=== PATIENT | female | born 1980 | race Caucasian/White ===

== ENCOUNTER → 2018-02-27 12:45 | Outpatient (CLI) | payer OTHER, SELFPAY ==
--- NOTE | 2018-02-27 | DI.MG.S_ITS ---
BILATERAL DIGITAL DIAGNOSTIC MAMMOGRAM 3D/2D WITH AUGMENTATION: 02/27/2018 CLINICAL: Focal left breast pain. Bilateral augmentation. Baseline exam. No prior exams were available for comparison. The tissue of both breasts is heterogeneously dense. This may lower the sensitivity of mammography. No significant masses, calcifications, or other findings are seen in either breast. IMPRESSION: INCOMPLETE: NEEDS ADDITIONAL IMAGING EVALUATION There is no abnormality seen in the left breast to correspond with the pain in the outer aspect, however, ultrasound is recommended. This exam was interpreted at Station ID: [id number]. NOTE: For mammograms, a report in lay terms will be sent to the patient. Approximately 15% of breast malignancies will not be visualized mammographically. In the management of a palpable breast mass, a negative mammogram must not discourage biopsy of a clinically suspicious lesion. Electronically Signed By: Salomon barker/lisandra:02/27/2018 13:39:35 letter sent: Need Ultrasound ACR BI-RADS Category 0: Incomplete [id number]
--- NOTE | 2018-02-27 | DI.US.S_ITS ---
ULTRASOUND OF LEFT BREAST: 02/27/2018 CLINICAL: Focal left breast pain. Comparison is made to exam dated: 02/27/2018 [facility]. Real-time ultrasound of the left breast was performed on the area of interest. IMPRESSION: NEGATIVE There is no sonographic evidence of malignancy. There is no abnormality seen in the left breast to correspond with the pain in the outer aspect, however, clinical followup is recommended. A 1 year screening mammogram is recommended. This exam was interpreted at Station ID: [id number]. Electronically Signed By: Salomon Anton M.D. ddp/:02/27/2018 16:21:49 letter sent: Clinical Evaluation Ultrasound BI-RADS: 1 Negative
== END ==
PROVIDERS: Visit Provider Nurse Practitioner Obstetrics & Gynecology
DX: N64.4 Mastodynia (principal)
CPT/HCPCS: 76642; 77066; G0279

== ENCOUNTER → 2020-02-16 15:27 | Outpatient (CLI) | payer OTHER, SELFPAY ==
[2020-02-17 19:59] LABS: COVID19 Sendout Not Detected (Not Detect)
== END ==
PROVIDERS: Visit Provider Physician Assistant
DX: Z11.59 Encounter for screening for other viral diseases (principal)
CPT/HCPCS: 87635

== ENCOUNTER 2020-02-19 06:22 | Day surgery (SDC) | payer OTHER, SELFPAY ==
[2020-02-12 07:55] VITALS: BMI 21.4
[2020-02-19] VITALS (12 sets, daily range): BP systolic 97–123; BP diastolic 55–75; PULSE 60–84; RESP 14–20; TEMP 36.3–37.2; O2SAT 97–100; BMI 21.4
--- NOTE | 2020-02-19 | PATH_ITS ---
[facility] Accession Number: [id number] . 01 Material submitted: . UTERUS/FALLOPIAN TUBES - UTERUS AND BILATERAL FALLOPIAN TUBES . 02 Diagnosis: Uterus and Bilateral Fallopian Tubes, Hysterectomy and Bilateral Salpingectomy (118 grams): Myometrium with rare adenomyosis. Proliferative endometrium. Bilateral fallopian tubes with no diagnostic abnormality. No evidence of neoplasia or hyperplasia. [facility] 02/25/2020 1314 Local . 02 Electronically signed: . Teresita Jarvis MD, Pathologist NPI- [id number] . 01 Gross description: . Specimen A is received in formalin, labeled with patient identification and uterus and bilateral fallopian tubes. It consists of two 59.0-gram uterine fragments (7.0 x 6.5 x 3.4 cm in aggregate) with an attached fimbriated fallopian tube (8.4 cm in length and 0.5 cm in diameter), an attached nonfimbriated fallopian tube (4.3 cm in length and 0.5 cm in diameter) and a fimbriated fallopian tube segment (4.2 cm in length and 0.5 cm in diameter. The uterine serosa is pink-muñiz and dull. The pink-muñiz and dull endometrium is less than 0.1 cm in thickness. The yellow-muñiz and trabeculated myometrium is up to 2.3 cm in thickness. . The serosae of the fallopian tubes are purple to pink-muñiz and dull. Sectioning the fallopian tubes reveals pinpoint and patent lumina which are lined by yellow-muñiz and grossly unremarkable mucosa. The fimbriae are freely moveable. Fire Alarm Repairer sections are submitted in seven cassettes. . Summary of sections: A1-A2 - medical service representative endomyometrium, full thickness, one piece each. A3-A4 - medical service representative endomyometrium, two pieces each. A5 - medical service representative bisected fimbria and medical service representative cross-sections, attached fimbriated fallopian tube, five pieces. A6 - medical service representative bisected fimbria and medical service representative cross-section, detached fimbriated fallopian tube, three pieces. A7 - medical service representative cross-sections of the attached nonfimbriated fallopian tube, four pieces. (TN:[id number]) A8-A10 - additional medical service representative sections of serosal surface. A11-A12 - additional medical service representative sections of fallopian tubes. (SD:[id number]) /MRV 02/24/2020 1628 Local . 02 Pathologist provided ICD-10: N92.1, N80.0 . 02 CPT . 460077 Performed at: 01 [facility] [address] [id number] MD Salomon Brown MD Phone: [phone] Performed at: 02 [facility] [address] [place], [place] [id number] MD Teresita Jarvis MD Phone: [phone]
[2020-02-19] MEDS: LACTATED RINGERS 1,000 ML 42 ML IV (07:06)
--- NOTE | 2020-02-19 07:26 | PM.PREOP ---
Pre-operative Note COVID-19 COVID-19 status: Negative Result date/Date tested (Pos, Neg/Pending): 02/16/20 Interval Note History & Physical reviewed/Exam performed by Physician: Yes Changes to H&P: No
[2020-02-19] MEDS: CLINDAMYCIN 900 MG/50 ML PIGGYBACK 50 MG IV (07:40)
[2020-02-19] MEDS: BUPIVACAINE 0.5% W/ EPI (PF) 30 ML VIAL INJ (08:16)
--- NOTE | 2020-02-19 08:17 | SUR.OPER ---
Lithotomy on padded OR bed. [place] Pad Positioner under torso. Head on pillow, arms padded and tucked at sides. Legs secured in padded yellow fins stirrups.
[2020-02-19] MEDS: ROPIVACAINE 0.2% PF 2 MG/ML 10ML AMP 20 ML INJ (09:06)
--- NOTE | 2020-02-19 09:35 | P.OP_ITS ---
Operative Date/Time/Diagnoses Date of procedure: 02/19/20 Time of procedure: 09:35 Pre-op diagnosis: Menorrhagia, dysmenorrhea, adenomyosis Post-op diagnosis: same Procedure & Clinicians Procedure: Laparoscopic supracervical hysterectomy with bilateral salpingectomy Same procedure as scheduled: Yes Indications: Menorrhagia and dysmenorrhea with adenomyosis by ultrasound Surgeon: Mona Palomares Cigar Tobacco Rehandler: Sherrie Ventura Anesthesia Type: General Operative Notes Findings: Mild adhesions of the omentum to the anterior abdominal wall, significant adhesions of the bladder to the uterus, normal tubes and ovaries. Uterus suggestive of adenomyosis. Closure Type: primary Specimen(s): other (Uterus above the level of the bladder) Estimated Blood Loss (mL): 50 Blood products transfused: none Procedure in detail: Patient is brought to the operating room where she underwent general anesthesia and placed in low yellowfin stirrups. She was prepped and draped in the usual sterile fashion. A check list was reviewed with the staff in the room prior to beginning of the case. Patient had pulsatile stockings in place and functional. 900 mg of clindamycin were in prior to beginning of the case.. A Craig catheter was placed. A single-tooth tenaculum was placed on the anterior lip of the cervix and the cervix dilated to a #6 Hegar dilator. The uterine manipulator was placed through the cervix into the uterus with the balloon inflated with 3 mL of air. The area of the umbilical incision and the 5 mm right and left lower quadrant incisions were injected with Marcaine. An incision was made with scalpel. The verries needle was placed into the abdomen and confirmed in the appropriate place with withdrawal on a syringe and then free flow of fluid down through the needle. The abdomen was insufflated with CO2. The needle was removed and a 5 mm trocar placed without difficulty. There did not appear to be any damage is placement of the trocar. The right and left lower quadrant incisions were made with the scalpel and the trochars placed without damage to internal structures. The PK forceps were used to cauterize the the adhesions of the omentum to the anterior abdominal wall. Sequential bites were taken along the mesosalpinx followed by the round ligaments on both sides. Sequential bites were taken down the broad ligaments. The uterine arteries were cauterized. An incision was made above the level bladder pushing the bladder away from the cervix. The NICHOL loop was placed around the uterus and the uterus was amputated above the level of the bladder. Bleeding was controlled with the PK forceps. The PK forceps were used to cauterize in the endocervical canal. A supracervical incision was made and an 11 mm port placed. A 15 mm Endo Catch bag was placed in the abdomen. The uterus, tubes and ovaries were placed in the bag and brought up through the suprapubic port site. The Cliff O was placed. The uterus was hand morselized. The abdomen was reinsufflated and adequate hemostasis was noted. 30 cc of Ropivacaine was placed over the cervical stump. The trochars were removed and the CO2 allowed escape from the abdomen. The fascia layer of the suprapubic site was repaired with 0 Polysorb suture. Skin was closed with 4-0 Monocryl suture at the suprapubic site and the other 3 sites. The patient went to recovery room in good condition. Counts of instruments and sponges were correct. Complications: none Post-operative Condition: stable Disposition: observation Plan for aftercare: Routine post laparoscopic hysterectomy.
[2020-02-19] MEDS: OXYCODONE/ACETAMINOPHEN 5/325 TABLET 1 TAB PO (09:51)
--- NOTE | 2020-02-19 13:08 | CM.DANOTE ---
DCP: Case received, EMR reviewed. Checked briefly on patient, she was sleeping, and just came back from surgery. Placed name of this cyanide case hardener on white board in room prior to her returning to her room. Went ahead and reviewed chart and completed DCP assessment based on information currently available. Patient is a 39 year old female who admitted early this morning for a surgical procedure by BILLING TYPIST. PCP: Jessica Mukherjee. Payer: [facility]. Patient came to the hospital for a surgical procedure. She had a laparoscopic hysterectomy. Patient had had history of menorrhagia/dysmorrhia. Patient is independent, and employed with [employer]. She resides in [place] with her spouse, Imtiaz. P: DCP to continue to follow for any needs. Patient should be able to go home when she is medically stable. Genesis Mcgrath RN/Outbound Sales Professional
[2020-02-19] MEDS: KETOROLAC 30 MG/ML VIAL IV ×2 (13:23→20:50)
[2020-02-19] MEDS: LACTATED RINGERS 1,000 ML 100 ML IV (13:23)
[2020-02-19] MEDS: OXYCODONE/ACETAMINOPHEN 5/325 TABLET 2 TAB PO ×3 (13:25→22:06)
[2020-02-19] MEDS: DOCUSATE 250 MG CAPSULE PO (20:45)
[2020-02-20] VITALS: BP 101/55; PULSE 70; RESP 16; TEMP 36.9; O2SAT 98
[2020-02-20] MEDS: OXYCODONE/ACETAMINOPHEN 5/325 TABLET 2 TAB PO ×2 (02:03→07:23)
[2020-02-20 06:06] VITALS: BP 108/59; PULSE 59; RESP 16; TEMP 36.8; O2SAT 95
[2020-02-20 06:11] LABS: Add Manual Diff / Slide Review NO; Basophils Absolute Auto 100 /uL (0-100); Basophils Percent Auto 0.7 % (0-2); Eosinophils Absolute Auto 100 /uL (0-450); Eosinophils Percent Auto 0.4 % (2-4); Hematocrit 34.2 % (36-46); Hemoglobin 11.2 g/dL (12.0-16.0); Lymphocytes Absolute Auto 1700 /uL (1100-4500); Lymphocytes Percent Auto 13.1 % (25-40); Mean Corpuscular HGB Conc 32.8 % (30-36); Mean Corpuscular Hemoglobin 27.8 PG (26-34); Monocytes Absolute Auto 800 /uL (0-900); Monocytes Percent Auto 6.1 % (3-14); Neutrophils Absolute Auto 10600 /uL (1500-7000); Neutrophils Percent Auto 79.7 % (50-75); Platelet Count 187 X10^3/uL (150-400); Red Blood Cell Count 4.02 X10^6/uL (4.0-5.2); Red Cell Distribution Width 14.1 % (11.6-14.8); White Blood Cell Count 13.3 X10^3/uL (4.5-11.0)
[2020-02-20] MEDS: DOCUSATE 250 MG CAPSULE PO (07:24)
--- NOTE | 2020-02-20 07:25 | P.DS_ITS ---
History of Present Illness History of Present Illness Date Patient Seen: 02/20/20 Time Patient Seen: 07:25 Chief complaint: [facility] *OPB* Narrative: Patient underwent laparoscopic supracervical hysterectomy with bilateral salpingectomies for menorrhagia, dysmenorrhea, adenomyosis by ultrasound on 02/19/2020. Discharge Providers Provider Discharge Date: 02/20/20 Primary care physician: Jessica Mukherjee ND Discharge provider: Mona Palomares MD Summary Hospital Course Discharge Diagnosis: Status post laparoscopic supracervical hysterectomy with bilateral salpingectomy for menorrhagia, dysmenorrhea, adenomyosis by ultrasound Hospital Course: Patient underwent surgery on 02/19/2020. She did well postoperatively and was discharged home on 02/19/2020. Patient denies any significant pain. She denies any nausea and vomiting. She is urinating and ambulatory. Exam Vital Signs (past 8 hours): - 02/20/20 00:00 02/20/20 06:06 Temperature 98.5 F 98.3 F Pulse Rate 70 59 L Respiratory Rate 16 16 Blood Pressure 101/55 L 108/59 L Pulse Oximetry 98 95 Oxygen Delivery Method Room Air Oxygen Flow Rate 0 Narrative Exam Narrative: Patient's abdomen is soft, appropriately tender. Dressings are dry. Extremities without edema and nontender. Patient denies any vaginal bleeding. Objective Labs Result Diagrams: 02/20/20 05:55 Labs: Laboratory Results - last 24 hr 02/20/20 05:55 WBC 13.3 H RBC 4.02 Hgb 11.2 L Hct 34.2 L MCV 85.0 MCH 27.8 MCHC 32.8 RDW 14.1 Plt Count 187 Neut % (Auto) 79.7 H Lymph % (Auto) 13.1 L [place] % (Auto) 6.1 Eos % (Auto) 0.4 L Baso % (Auto) 0.7 Neut # (Auto) 98099 H Lymph # (Auto) 1700 [place] # (Auto) 800 Eos # (Auto) 100 Baso # (Auto) 100 Discharge Assessment & Plan Assessment and Plan Assessment: Status post laparoscopic supracervical hysterectomy for dysmenorrhea, menorrhagia, adenomyosis doing well Plan of Treatment: Patient was discharged home to be followed up in 2 weeks Discharge Plan Discharge Plan Patient Disposition: Home Discharge Med Rec/Prescriptions Prescriptions: Continued oxycodone-acetaminophen [Percocet] 5-325 mg tablet 2 tab PO Q4-6H PRN (Reason: pain) Qty: 30 RF: 0 Discontinued scopolamine base 1 mg over 3 days patch 3 day 1 patch transdermal Q3D PRN (Reason: nausea and vomiting) Qty: 1 RF: 0 Follow up/Referrals: Mona Palomares MD [Physician] - 2 Weeks Discharge Orders: Discharge (Order); Ordered 02/20/20 Ordered By: Mona Palomares Provider Discharge Instructions Diet: Regular Activity: No intercourse or heavy lifting for 1 week Skin/Wound/Dressing Care Report to your healthcare provider any signs of infection, such as:: chills, fever, increased pain and unusual redness Dressing: May remove Band-Aids later today. Leave Steri-Strips on, can get wet just pat dry. Remove in 7 days. Visit Report/Discharge Packet Instructions: DI for Hysterectomy, DI for Laparoscopy Discharge Data Primary Care Provider: Jessica Mukherjee Attending Provider: Mona Palomares
[2020-02-20 09:38] VITALS: BP 115/69; PULSE 69; RESP 16; TEMP 36.6; O2SAT 99
[2020-02-20] MEDS: ONDANSETRON 4 MG/2 ML INJ IV (10:53)
--- NOTE | 2020-02-20 11:15 | PC.NURSE ---
Patient A/Ox3, prepared to discharge today. Showered independently. C/O 6/10 pain this AM, given PRN pain medication. C/O nausea at 1030. PRN Zofran administered. Patient tolerated. Dsgs changed x4, sites are free of redness and warmth. Patient is afebrile. Patient is voiding, BS active x4. Patient given discharge instructions, including s/s of infection. Patient verbalized understanding. Patient discharged via wheelchair.
--- NOTE | 2020-02-20 11:24 | CM.DPC ---
DCP: continued: case received and discussed in Team Rounds. EMR reviewed. Dr. Palomares was here this morning and ok'd pt for d/c home. P: home today as soon as paperwork is completed.
== END 2020-02-20 11:00 | disposition home or self-care (01) ==
LOC: OR 06:24 → AC 06:27
PROVIDERS: PCP Acupuncturist; Referring Provider Acupuncturist; Visit Provider Specialist
PROC: 0UT94ZL Resection of Uterus, Supracervical, Percutaneous Endoscopic Approach (ICD-10-PCS; CPT 58542; principal; 2020-02-19 07:45)
DX: N80.0 Endometriosis of uterus (principal)
CPT/HCPCS: 58542; 36415; 85025; J1100; J1885; J2250; J2405; J2704; J2795; J3010

== ENCOUNTER → 2022-02-23 10:31 | Outpatient (CLI) | payer OTHER, SELFPAY ==
[2020-02-19 11:21] VITALS: BMI 21.4
[2022-02-23 12:06] LABS: COVID19 -Nasal RAPID Negative (Negative)
== END ==
PROVIDERS: PCP Acupuncturist; Referring Provider Podiatrist; Visit Provider Podiatrist
DX: Z20.822 Contact with and (suspected) exposure to COVID-19 (principal)
CPT/HCPCS: 87635; C9803

== ENCOUNTER 2022-02-24 06:16 | Day surgery (SDC) | payer OTHER, SELFPAY ==
[2020-02-19 11:21] VITALS: BMI 21.4
[2022-02-23 08:18] VITALS: BMI 24.7
[2022-02-24 07:10] VITALS: BP 119/87; PULSE 77; RESP 16; TEMP 36.8; O2SAT 98; BMI 24.3
--- NOTE | 2022-02-24 07:25 | SUR.OPER ---
Supine on padded OR bed, head on pillow, arms secured on padded arm boards at <90 degrees abduction, legs uncrossed, safety belt at thigh, tape over blanket over nonoperative lower leg.
[2022-02-24] MEDS: LACTATED RINGERS 1,000 ML 100 ML IV (07:40)
[2022-02-24] MEDS: SCOPOLAMINE 1 PATCH TOP (07:41)
--- NOTE | 2022-02-24 07:49 | PM.PREOP ---
Pre-operative Note COVID-19 COVID-19 status: Negative Result date/Date tested (Pos, Neg/Pending): 02/23/22 Interval Note History & Physical reviewed/Exam performed by Physician: Yes Changes to H&P: No
--- NOTE | 2022-02-24 07:50 | PM.OP.1 ---
Operative Date/Time/Diagnoses Date of procedure: 02/24/22 Time of procedure: 07:51 Pre-op diagnosis: Right great toe joint arthritis, bone spur. Post-op diagnosis: same Procedure & Clinicians Procedure: Right first metatarsophalangeal joint cheilectomy Same procedure as scheduled: Yes Indications: 41-year-old female with pain to the right great toe joint. Conservative measures failed to alleviate her pain and she wished to have surgical intervention at this time. Spoke the risks, potential complications, as well as expected outcomes of the procedure. Consent was signed, no contraindications to the procedure at this time. Surgeon: Khushi Reyes Click Yes if Unassisted: Yes Anesthesia Type: General Operative Notes Closure Type: primary Specimen(s): none sent Estimated Blood Loss (mL): 10 Tourniquet time (min): 19 Procedure in detail: The patient was brought to the operating room and placed on the operating table in the supine position. Tourniquet was placed about the right ankle. Patient is well-padded and appropriately supported. After induction of general anesthesia the right foot and ankle were prepped and draped in the usual aseptic manner. The tourniquet was inflated. Incision was made over the right 1st metatarsal phalangeal joint. The incision was deepened through subcutaneous tissues being careful to identify and retract all vital neurovascular structures. All bleeders were cauterized and ligated as necessary. The capsule was entered dorsally at the joint and this exposed the shelf of spurring of the dorsal metatarsal head, and to a lesser extent, proximal phalangeal base. Of note, the metatarsal head showed wearing of the cartilage surface central to slightly laterally with about 1/4 of surface being impacted by loss of the cartilage. The metatarsal head upon loading was noted to be slightly elevated from the proximal phalanx, consistent with preoperative x-rays. The saw and rongeur were used to resect the dorsal joint spurs and shelf of bone on the metatarsal head dorsally. A rasp was used to reduce the sharp edges of the bone and spurring on the proximal phalanx and metatarsal head. Centrally, a 0.062 K-wire was used to subchondrally drill the areas lacking cartilage on the 1st metatarsal head. The area was irrigated with copious amounts normal sterile saline. The toe showed increased motion without crepitus on dorsiflexion and plantarflexion. The tourniquet was deflated and a prompt hyperemic response was seen in the foot. Deep and subcutaneous closure was closed performed with Vicryl. Nylon suture used to close the skin. The foot was dressed with a lightly compressive sterile dressing and splint in alignment. Patient was then placed in a postoperative shoe and transferred to PACU with vital signs stable. Post-operative Condition: stable Disposition: PACU Plan for aftercare: Following a period of postoperative monitoring, the patient will be discharged to home on written and oral postoperative instructions including keeping the dressing dry and intact, weight-bearing instructions for the foot have been reviewed along with detailed instructions given at her preoperative visit, icing and elevating the foot when seated home. DVT prevention techniques have been reviewed. For the 1st postoperative visit the dressing will be changed and close to the 3rd postoperative week we will likely remove the sutures.
[2022-02-24] MEDS: CLINDAMYCIN 600 MG/50 ML PIGGYBACK 50 MG IV (08:05)
[2022-02-24] MEDS: BUPIVACAINE 0.5% (PF) VIAL 30 ML INJ (08:15)
[2022-02-24 09:12] VITALS: BP 129/82; PULSE 75; RESP 13; O2SAT 99
[2022-02-24 09:17] VITALS: BP 119/79; PULSE 72; RESP 11; RESP 18; O2SAT 100
[2022-02-24] MEDS: ONDANSETRON 4 MG/2 ML INJ IV (09:21)
[2022-02-24] MEDS: fentaNYL 100 MCG/2 ML INJ IV (09:21)
[2022-02-24 09:23] VITALS: BP 116/79; PULSE 72; RESP 17; O2SAT 100
[2022-02-24] MEDS: OXYCODONE/ACETAMINOPHEN 5/325 TABLET 1 TAB PO (09:25)
[2022-02-24 09:27] VITALS: BP 124/84; PULSE 70; RESP 19; O2SAT 100
[2022-02-24 09:33] VITALS: BP 128/81; PULSE 68; RESP 12; TEMP 36.1; O2SAT 99
== END 2022-02-24 09:50 | disposition home or self-care (01) ==
PROVIDERS: PCP Acupuncturist; Referring Provider Podiatrist; Visit Provider Podiatrist
PROC: (CPT 28289; principal; 2022-02-24 07:45)
DX: M19.071 Primary osteoarthritis, right ankle and foot (principal); M77.51 Other enthesopathy of right foot and ankle; M25.774 Osteophyte, right foot
CPT/HCPCS: 28289; J2250; J2405; J2704; J3010